=== PATIENT | female | born 1980 | race African-American/Black ===

== ENCOUNTER 2016-08-31 14:38 | Emergency (ER) | payer MEDICAID ==
[~2016-08-31] VITALS: Ht 172.7 cm; Wt 56.5 kg
[~2016-08-31 14:38] MED LIST: FERR324T4 PO
[2016-08-31 14:41] VITALS: BP 124/68; PULSE 87; RESP 16; TEMP 98.5; O2SAT 100
--- NOTE | 2016-08-31 15:07 | PD ---
Physical Exam Time Seen by Provider: 15:05 Narrative 21 y/o female presents for evaluation of late menstrual period. Her LMP was late june 2016 and she is concerned that she may be . Used an otc test but states that it malfunctioned. Denies any other complaints at this time. vss Seen at triage desk. Awaiting bed placement. Data Data Last Documented VS Vital Signs Date Time Temp Pulse Resp B/P Pulse Ox O2 Delivery O2 Flow Rate FiO2 08/31/16 14:41 98.5 87 16 124/68 100 Room Air [facility] Medical Record Reviewed: Yes Supervised Visit with THIAGO: Emmanuel Maharaj August 31, 2016 15:07
== END 2016-08-31 17:21 | disposition left against medical advice (07) ==
LOC: NED 14:38
DX: N92.5 Other specified irregular menstruation (principal)
CPT/HCPCS: 99281